=== PATIENT | female | born 1980 ===

== ENCOUNTER → 2025-03-11 07:39 | Outpatient (REF) | payer BC, SELFPAY | LOC: PAVMRI 07:39 | PROVIDERS: ATTENDING PHYSICIAN Nurse Practitioner Family | DX: H53.8 Other visual disturbances (principal); R55 Syncope and collapse; Z87.898 Personal history of other specified conditions | CPT/HCPCS: 70553; A9575 ==

== ENCOUNTER → 2025-06-06 15:08 | Outpatient (REF) | payer BC, SELFPAY | LOC: HWWDC 15:08 | PROVIDERS: ATTENDING PHYSICIAN Obstetrics & Gynecology; FAMILY PHYSICIAN Nurse Practitioner Family | DX: Z12.31 Encounter for screening mammogram for malignant neoplasm of breast (principal) | CPT/HCPCS: 77063; 77067 ==